=== PATIENT | female | born 1995 | race Caucasian/White ===

== ENCOUNTER 2023-04-19 11:56 | Emergency (ER) | payer MEDICAID ==
[2023-04-19 12:06] VITALS: PULSE 84
[2023-04-19] MEDS ORDERED: Diphtheria,Pertussis(Acell),Tetanus Vaccine 0.5 ML Syringe IM ONE (12:12)
[2023-04-19] MEDS ORDERED: Lidocaine 1% 10 ML MDV INJECT ONE (12:13)
[2023-04-19 13:35] VITALS: BP 128/74
== END 2023-04-19 13:32 | disposition home or self-care (01) ==
LOC: JD.ED 11:56
DX: S61.512A Laceration without foreign body of left wrist, initial encounter (principal); F17.210 Nicotine dependence, cigarettes, uncomplicated; Z23 Encounter for immunization; Z88.0 Allergy status to penicillin; W26.8XXA Contact with other sharp object(s), not elsewhere classified, initial encounter
CPT/HCPCS: 12004; 90471; 90715; 99283; 99283-25; J3490

== ENCOUNTER 2025-03-05 16:50 | Inpatient (IN) | payer MEDICAID ==
[2025-03-05] MEDS ORDERED: Ondansetron 4 MG/2 ML SDV IVPUSH PRN (17:28)
[2025-03-05] MEDS ORDERED: Nalbuphine 10 MG/1 ML Vial IVPUSH PRN (17:28)
[2025-03-05] MEDS ORDERED: Oxytocin/0.9 % Sodium Chloride 30 UNIT/500 ML BAG IV SCH (17:30)
[2025-03-05 18:05] LABS: BASOPHILS ABSOLUTE AUTO 0.0 K/mm3 (0.0-0.2); BASOPHILS PERCENT AUTO 0.2 % (0.0-1.0); EOSINOPHILS ABSOLUTE AUTO 0.1 K/mm3 (0.0-0.4); EOSINOPHILS PERCENT AUTO 0.3 % (0.0-6.0); IMMATURE GRAN ABSOLUTE AUTO 0.10 K/mm3 (0.00-0.05); IMMATURE GRAN PERCENT AUTO 0.5 % (0.0-0.4); LYMPHOCYTES ABSOLUTE AUTO 1.8 K/mm3 (1.0-4.8); LYMPHOCYTES PERCENT AUTO 9.8 % (24.0-44.0); MEAN PLATELET VOLUME 11.0 fl (9.4-12.3); MONOCYTES ABSOLUTE AUTO 0.8 K/mm3 (0.0-0.8); MONOCYTES PERCENT AUTO 4.1 % (0.0-8.0); NEUTROPHILS ABSOLUTE AUTO 15.7 K/mm3 (1.8-7.7); NEUTROPHILS PERCENT AUTO 85.1 % (41.0-71.0); NRBC ABSOLUTE 0.00 (0.00-0.02); NRBC PERCENT 0.0 % (0.0-0.2); PLATELET COUNT,PLT 226 K/mm3 (150-400); RED BLOOD CELL COUNT 4.53 M/mm3 (4.10-5.30); WHITE BLOOD CELL COUNT,WBC 18.50 K/mm3 (3.9-11.3)
[2025-03-05] MEDS: Lactated Ringers 1,000 ML IV SCH (18:19)
[2025-03-05] MEDS ORDERED: ePHEDrine 50 MG/ML SDV IVPUSH PRN ×3 (19:07→20:06)
[2025-03-05] MEDS ORDERED: diphenhydrAMINE 50 MG/ML SDV IVPUSH PRN ×2 (19:07→20:06)
[2025-03-05] MEDS ORDERED: fentaNYL 100 MCG/2 ML SDV EPIDUR PRN ×3 (19:07→20:06)
[2025-03-05] MEDS ORDERED: Bupivacaine/fentaNYL/NS 100 ML Bag EPIDUR PRN ×2 (19:07→20:06)
[2025-03-05] MEDS: Bupivacaine/fentaNYL/NS 100 ML Bag EPIDUR PRN (19:37)
[2025-03-06] MEDS: Oxytocin/0.9 % Sodium Chloride 30 UNIT/500 ML BAG IV SCH (00:34)
[2025-03-06] MEDS: Witch Hazel Medicated Pads 40/Jar TOP PRN (05:11)
[2025-03-06] MEDS: Benzocaine/Menthol 20%-0.5% Spray 78 GM Cannister TOP PRN (05:11)
[2025-03-07 02:00] LABS: MEAN PLATELET VOLUME 11.3 fl (9.4-12.3); NRBC ABSOLUTE 0.00 (0.00-0.02); NRBC PERCENT 0.0 % (0.0-0.2); PLATELET COUNT,PLT 171 K/mm3 (150-400); RED BLOOD CELL COUNT 3.45 M/mm3 (4.10-5.30); WHITE BLOOD CELL COUNT,WBC 13.78 K/mm3 (3.9-11.3)
[2025-03-07] MEDS: Bupivacaine/fentaNYL/NS 100 ML Bag ONE (05:44)
[2025-03-07 08:43] VITALS: BP 133/74; PULSE 82
== END 2025-03-07 10:42 | disposition home or self-care (01) | DRG 807 ==
LOC: JD.OBCHECK 16:50 → JD.OB 17:04 → OBSVTOIN 17:29 → JD.OBCHECK 17:33 → JD.OB 03-06 01:25
PROVIDERS: ADMIT Obstetrics & Gynecology; ATTEND Obstetrics & Gynecology
PROC: 10E0XZZ Delivery of Products of Conception, External Approach (ICD-10-PCS; principal; 2025-03-05)
PROC: 3E0R3BZ Introduction of Anesthetic Agent into Spinal Canal, Percutaneous Approach (ICD-10-PCS; principal; 2025-03-05)
DX: O99.824 Streptococcus B carrier state complicating childbirth (principal); Z37.0 Single live birth; Z3A.39 39 weeks gestation of pregnancy; Z88.0 Allergy status to penicillin; Z79.899 Other long term (current) drug therapy
CPT/HCPCS: 36415; 51702; 59025; 59409; 84112; 85025; 85027; 86592; 86850; 86900; 86901; A9270-GY; J3373; J3490; J7050; J7120; J7999